=== PATIENT | female | born 1945 | race Caucasian/White ===

== ENCOUNTER → 2018-04-12 11:11 | Outpatient (CLI) | payer OTHER, SELFPAY ==
--- NOTE | 2018-04-12 | DI.MG.S_ITS ---
BILATERAL DIGITAL SCREENING MAMMOGRAM 3D/2D WITH CAD: 04/12/2018 CLINICAL: Routine screening. Comparison is made to exams dated: 04/23/2017 mammogram, 04/21/2016 mammogram, and 04/18/2015 mammogram - [facility]. The tissue of both breasts is extremely dense, which lowers the sensitivity of mammography. Current study was also evaluated with a Computer Aided Detection (CAD) system. There are benign calcifications in both breasts. No significant masses, calcifications, or other findings are seen in either breast. There has been no significant interval change. IMPRESSION: There is no mammographic evidence of malignancy. A 1 year screening mammogram is recommended. NOTE: For mammograms, a report in lay terms will be sent to the patient. Approximately 15% of breast malignancies will not be visualized mammographically. In the management of a palpable breast mass, a negative mammogram must not discourage biopsy of a clinically suspicious lesion. Electronically Signed By: Shantell wells/veronique:04/13/2018 15:57:59 letter sent: Normal Exam ACR BI-RADS Category 2: Benign Finding(s) 3342F
== END ==
PROVIDERS: Family Provider Internal Medicine; PCP Internal Medicine; Visit Provider Internal Medicine
DX: Z12.31 Encounter for screening mammogram for malignant neoplasm of breast (principal)
CPT/HCPCS: 77063; 77067

== ENCOUNTER → 2019-02-21 12:59 | Outpatient (CLI) | payer MEDICARE, OTHER, SELFPAY ==
--- NOTE | 2019-02-21 | DI.CT.S_ITS ---
PROCEDURE: CT ANGIO CHEST PE PROTOCOL INDICATIONS: PULMONARY EMBOLISM TECHNIQUE: After the administration of intravenous contrast, 2 mm thick sections acquired from the pulmonary apices to the posterior costophrenic angles. 3-dimensional maximum intensity projection (MIP) coronal and sagittal reformats were then acquired through the thorax. For radiation dose reduction, the following was used: automated exposure control, adjustment of mA and/or kV according to patient size. COMPARISON: None. FINDINGS: Image quality: Excellent. Pulmonary arteries: Pulmonary arteries are normal in size, and demonstrate no intraluminal filling defects to suggest central pulmonary embolism. Lungs and pleura: There are biapical scars. There is a 2 mm subpleural nodule in the right upper lobe (series 5 image 25), demonstrating partial calcification, likely an old granuloma. Lungs are otherwise clear. No pleural effusions or pneumothorax. Central and peripheral airways are patent. Mediastinum: Heart size is normal, without pericardial effusion. Mildly enlarged precarinal lymph nodes measure up to 1 cm in short axis. Two oval-shaped cystic masses are present, one in the subcarinal region measuring 1.0 x 1.7 cm, and one just beyond the right superior pulmonary vein measuring 1.4 x 2.0 cm. Thoracic aorta is normal in caliber and enhancement. Esophagus is normal in caliber. Small hiatal hernia. Bones and chest wall: No suspicious bony lesions. Ribs and thoracic spine appear intact throughout. Thyroid gland is normal. No axillary or supraclavicular adenopathy. Abdomen: Visualized upper abdominal solid organs appear normal in the early arterial phase of enhancement. IMPRESSION: 1. No findings to suggest acute central pulmonary embolism. 2. Borderline enlarged precarinal lymph nodes are most likely reactive. 3. Two oval-shaped cystic masses in the posterior mediastinum. Differential diagnoses include pericardial cysts, bronchogenic cysts or duplication cysts. 4. Small hiatal hernia. Dictated by: Cindy Gil M.D. on 02/21/2019 at 14:48 Approved by: Cindy Gil M.D. on 02/21/2019 at 15:06
[2019-02-21 13:32] LABS: Add Manual Diff / Slide Review NO; Basophils Absolute Auto 100 /uL (0-100); Eosinophils Absolute Auto 200 /uL (0-450); Eosinophils Percent Auto 3.2 % (2-4); Hematocrit 46.6 % (36-46); Hemoglobin 15.7 g/dL (12.0-16.0); Lymphocytes Absolute Auto 2700 /uL (1100-4500); Mean Corpuscular HGB Conc 33.6 % (30-36); Mean Corpuscular Hemoglobin 29.1 PG (26-34); Mean Corpuscular Volume 86.7 fL (80-100); Monocytes Absolute Auto 600 /uL (0-900); Monocytes Percent Auto 8.8 % (3-14); Neutrophils Absolute Auto 3600 /uL (1500-7000); Platelet Count 210 X10^3/uL (150-400); Red Blood Cell Count 5.38 X10^6/uL (4.0-5.2); Red Cell Distribution Width 13.9 % (11.6-14.8); White Blood Cell Count 7.2 X10^3/uL (4.5-11.0)
[2019-02-21 13:40] LABS: Prothrombin Time 11.4 SECONDS (10.1-12.7)
[2019-02-21 13:43] LABS: PTT Partial Thromboplastin Tim 33 SECONDS (26.4-36.2)
[2019-02-21 13:46] LABS: Alanine Aminotransferase 27 IU/L (9-52); Albumin 4.9 g/dL (3.5-5.0); Albumin Globulin Ratio 1.5 (1.0-2.8); Alkaline Phosphatase 71 U/L (38-126); Aspartate Aminotransferase 33 IU/L (14-36); Bilirubin Total 1.3 mg/dL (0.2-1.3); Blood Urea Nitrogen 20 mg/dL (7-17); Calcium 10.1 mg/dL (8.4-10.2); Carbon Dioxide 28 mmol/L (22-32); Chloride 100 mmol/L (98-107); Cholesterol 162 mg/dL (140-199); Estimated Glomerular Filt Rate > 60.0 mL/min (>60); Globulin 3.3 g/dL (1.7-4.1); Glucose 143 mg/dL (80-110); HDL Cholesterol 62 mg/dL (40-60); HEMOLYSIS < 15 (0-50); LDL Cholesterol Calculated 79 mg/dL (<100); Potassium 5.2 mmol/L (3.4-5.1); Sodium 139 mmol/L (137-145); Total Protein 8.2 g/dL (6.3-8.2); Triglycerides 105 mg/dL (35-150)
[2019-02-21 14:23] LABS: Thyroid Stimulating Hormone 9.46 uIU/mL (0.47-4.68)
== END ==
PROVIDERS: PCP Internal Medicine; Visit Provider Internal Medicine
DX: I26.99 Other pulmonary embolism without acute cor pulmonale (principal); J98.4 Other disorders of lung; K44.9 Diaphragmatic hernia without obstruction or gangrene; R55 Syncope and collapse; E03.9 Hypothyroidism, unspecified; E78.2 Mixed hyperlipidemia
CPT/HCPCS: 36415; 71275; 80053; 80061; 84443; 85025; 85610; 85730; Q9967

== ENCOUNTER → 2019-11-06 14:04 | Outpatient (CLI) | payer MEDICARE, OTHER, SELFPAY | PROVIDERS: PCP Internal Medicine; Referring Provider Internal Medicine; Visit Provider Internal Medicine | DX: M85.851 Other specified disorders of bone density and structure, right thigh (principal); Z78.0 Asymptomatic menopausal state; E07.9 Disorder of thyroid, unspecified; Z82.62 Family history of osteoporosis | CPT/HCPCS: 77080 ==

== ENCOUNTER → 2019-12-27 08:53 | Outpatient (CLI) | payer MEDICARE, OTHER, SELFPAY ==
[2019-12-27 10:06] LABS: Aspartate Aminotransferase 34 IU/L (14-36); BUN Creatinine Ratio 26.4 (6-22); Blood Urea Nitrogen 19 mg/dL (7-17); Calcium 10.1 mg/dL (8.4-10.2); Carbon Dioxide 28 mmol/L (22-32); Chloride 104 mmol/L (98-107); Cholesterol 159 mg/dL (140-199); Estimated Glomerular Filt Rate > 60.0 mL/min (>60); Glucose 111 mg/dL (80-110); HDL Cholesterol 63 mg/dL (40-60); HEMOLYSIS < 15 (0-50); LDL Cholesterol Calculated 77 mg/dL (<100); Potassium 4.8 mmol/L (3.4-5.1); Sodium 138 mmol/L (137-145); Triglycerides 95 mg/dL (35-150)
[2019-12-27 11:01] LABS: Vitamin D 25 Hydroxy (D3) 65.2 ng/mL (30.0-100.0)
[2019-12-27 11:15] LABS: TSH w/ Reflex to FT4 0.94 uIU/mL (0.47-4.68)
== END ==
PROVIDERS: PCP Internal Medicine; Referring Provider Internal Medicine; Visit Provider Internal Medicine
DX: E03.9 Hypothyroidism, unspecified (principal); E55.9 Vitamin D deficiency, unspecified; I10 Essential (primary) hypertension; E78.2 Mixed hyperlipidemia
CPT/HCPCS: 36415; 80048; 80061; 82306; 84443; 84450

== ENCOUNTER → 2019-12-28 14:47 | Oncology outpatient (ONC) | payer MEDICARE, OTHER, SELFPAY ==
[2019-12-28 15:29] VITALS: BP 140/68; PULSE 59; RESP 16; TEMP 36.6; O2SAT 96
[2019-12-28] MEDS: ZOLEDRONIC ACID 5 MG in SODIUM CHLORIDE 0.9% 100 ML 318.75 ML IV (15:30)
== END ==
PROVIDERS: PCP Internal Medicine; Referring Provider Internal Medicine; Visit Provider Internal Medicine
DX: M85.80 Other specified disorders of bone density and structure, unspecified site (principal)
CPT/HCPCS: 96365; J3489

== ENCOUNTER → 2020-01-14 14:25 | Outpatient (CLI) | payer MEDICARE, OTHER, SELFPAY ==
[2020-01-15 17:33] LABS: COVID19 Sendout Not Detected (Not Detect)
== END ==
PROVIDERS: PCP Internal Medicine; Visit Provider Physician Assistant
DX: Z11.59 Encounter for screening for other viral diseases (principal)
CPT/HCPCS: 87635

== ENCOUNTER 2020-01-17 10:54 | Day surgery (SDC) | payer MEDICARE, OTHER, SELFPAY ==
--- NOTE | 2020-01-17 | PATH_ITS ---
[facility] Accession Number: [id number] . 01 Material submitted: . colon - DESCENDING COLON POLYPS . 01 Clinical history: . A: DESCENDING COLON POLYPS (3) . 02 Diagnosis: Descending Colon Polyps: Portion of tubular adenoma x1. Portion of hyperplastic polyp x1. Superficial portion of colorectal mucosa x1 with a benign lymphoid aggregate. MRV 01/18/2020 1529 Local . 02 Electronically signed: . Hanna Murphy MD, Pathologist NPI- [id number] . 01 Gross description: . DESCENDING COLON POLYPS: Received in formalin are 3 fragment(s) of braun, soft tissue measuring 0.2 x 0.2 x 0.2 cm to 0.4 x 0.4 x 0.3 cm submitted entirely in 1 cassette(s) /ALISHA 01/18/2020 0202 Local . 02 Pathologist provided ICD-10: K63.5, Z86.010 . 02 CPT . 881120 Performed at: 01 [facility] [address], [place], [place] [id number] MD Chalino Cage MD Phone: [phone] Performed at: 02 [facility] [address] [place], [place] [id number] MD Kathi Allen MD Phone: [phone]
[2020-01-17 11:42] VITALS: BP 132/67; PULSE 66; RESP 16; TEMP 36.8; O2SAT 100; BMI 23.8
[2020-01-17] MEDS: LACTATED RINGERS 1,000 ML 42 ML IV (11:45)
--- NOTE | 2020-01-17 12:35 | PM.HP.1 ---
History of Present Illness History of Present Illness Chief complaint: [facility] [place] Patient History Family & Social History Social History: household members spouse Tobacco & Substance use: Smoking Status Never smoker alcohol intake frequency a few times a month Substance Use Type does not use Meds Home Medications and Allergies Home Medications Medication Instructions Recorded Confirmed Type Fish Oil (#CARDI-OMEGA) 1,000 mg PO DAILY #0 08/22/11 01/17/20 History MULTIVITAMIN (#MULTIPLE VITAMINS) 1 cap PO Q DAY #0 08/22/11 01/17/20 History VITAMIN D (Vitamin D3) 2,000 unit PO QDAY #0 08/22/11 01/17/20 History [VITAMIN B 12] 1,000 mcg PO DAILY #0 08/22/11 01/17/20 History aspirin 81 mg PO QDAY #0 08/22/11 01/17/20 History levothyroxine 100 mcg PO QDAY #0 08/22/11 01/17/20 History estradiol 10 mcg VAGINAL QTUTH 01/17/20 01/17/20 History fluticasone propionate 1 spray INTRANASAL DAILY 01/17/20 01/17/20 History losartan 50 mg PO DAILY 01/17/20 01/17/20 History rosuvastatin 20 mg PO DAILY 01/17/20 01/17/20 History Allergies Allergy/AdvReac Type Severity Reaction Status Date / Time garlic Allergy Severe RASH, Verified 01/17/20 11:40 DIARRHEA, SOB Penicillins Allergy Intermediate Hives Verified 01/17/20 11:40 Sulfa (Sulfonamide Allergy Intermediate HIVES Verified 01/17/20 11:40 Antibiotics) Review of Systems Review of Systems ROS: Yes All systems reviewed with the patient and are negative except as otherwise documented Exam Vital Signs (past 8 hours): - 01/17/20 11:42 Temperature 98.2 F Pulse Rate 66 Respiratory Rate 16 Blood Pressure 132/67 Pulse Oximetry 100 Oxygen Delivery Method Room Air Narrative Exam Narrative: Awake alert and oriented x3, no acute distress, heart rate regular Assessment & Plan Assessment & Plan narrative: Colon cancer screening for colonoscopy COVID-19 COVID-19 status: Negative
[2020-01-17] MEDS: fentaNYL 250 MCG/5 ML INJ IV (13:42)
[2020-01-17] MEDS: MIDAZOLAM 5 MG/5 ML VIAL IV (13:42)
[2020-01-17 13:45] VITALS: BP 100/53; PULSE 66; RESP 15; TEMP 36.6; O2SAT 93
--- NOTE | 2020-01-17 13:46 | PM.OP.ENDO ---
Operative Date/Time/Diagnoses Date of procedure: 01/17/20 Procedure & Clinicians Study performed: Colonoscopy with forceps polypectomy Moderate conscious sedation was administered by the endoscopy nurse and supervised by the endoscopist. The following parameters were monitored: Oxygen saturation, heart rate, blood pressure, and response to care. 5mg midazolam and 100mcg fentanyl. Same procedure as scheduled: Yes Indications: Personal history of colon polyps. Last colonoscopy was 5 years ago. Procedure Notes Procedure in detail: Prior to the procedure, history and physical was performed, and patient medications and allergies were reviewed. Preprocedure nursing history and assessment was reviewed. Patient identification and proposed procedure were verified by the physician and nurse in the procedure room. The physical status of the patient was reassessed after the procedure. After informed consent was obtained including risks, benefits, and alternatives, the scope was passed under direct vision. Throughout the procedure, the patient's blood pressure, pulse, and oxygen saturations were monitored continuously. The colonoscope was introduced through the anus and advanced to the cecum as identified by the appendiceal orifice and ileocecal valve. The patient tolerated the procedure well. Bowel prep was deemed adequate to detect polyps greater than 5 mm. Digital rectal and perianal examinations were unremarkable. Retroflexion in the rectum was unrevealing. Three sessile polyps measuring 2-3 mm in diameter were removed from the descending colon with a Jumbo biopsy forceps and retrieved Impression: Three 2-3 mm polyps removed from the descending colon Sedation minutes: 21 Complications: other (EBL minimal. No complications) Post-procedure Plan for aftercare: Follow-up pathology results Repeat colonoscopy at a date to be determined based on pathology results Resume home medications Resume previous diet Patient has a contact number available for emergencies. The signs and symptoms of potential delayed complications were discussed with the patient. Return to normal activities tomorrow. Written discharge instructions were provided to the patient. Discharge home with escort
[2020-01-17 13:50] VITALS: BP 101/55; PULSE 79; RESP 20; O2SAT 99
[2020-01-17 13:54] VITALS: BP 106/61; PULSE 79; RESP 12; O2SAT 99
[2020-01-17 13:59] VITALS: BP 106/50; PULSE 70; RESP 17; O2SAT 98
[2020-01-17 14:22] VITALS: BP 116/61; PULSE 64; RESP 12; TEMP 36.8; O2SAT 100
== END 2020-01-17 14:17 | disposition home or self-care (01) ==
PROVIDERS: PCP Internal Medicine; Referring Provider Internal Medicine; Visit Provider Internal Medicine
PROC: 0DJD8ZZ Inspection of Lower Intestinal Tract, Via Natural or Artificial Opening Endoscopic (ICD-10-PCS; CPT 45378; principal; 2020-01-17 12:30)
DX: Z12.11 Encounter for screening for malignant neoplasm of colon (principal); Z86.010 Personal history of colon polyps; D12.4 Benign neoplasm of descending colon
CPT/HCPCS: 45380; J2250; J3010